=== PATIENT | female | born 1995 | race Caucasian/White ===

== ENCOUNTER 2017-09-21 02:01 | Emergency (ER) | payer OTHER ==
[2017-09-21] MEDS ORDERED: ONDANSETRON 4 MG/2 ML VIAL ONE (02:06)
--- NOTE | 2017-09-21 02:06 | EDPHY ---
H & P Time Seen by Provider: 09/21/17 02:06 HPI/ROS: HPI CHIEF COMPLAINT: Nausea HISTORY OF PRESENT ILLNESS: Patient very pleasant 21-year-old female she is otherwise healthy without any significant medical history she presents emergency room with nausea. She states for the past week she has had intermittent nausea and did see her primary care doctor for this and was thought to be anxiety. She states that most today she laid in bed she has not had any vomiting she denies any fever. About an hour ago or 1:00 a.m. Prior to arriving in the emergency room she developed a little bit of right flank pain that is now resolved. The pain did not go anywhere was located in right CVA region. She denies any urinary symptoms, denies any abdominal pain, denies chest pain or shortness of breath, denies fever. Denies diarrhea or active vomiting. Denies rigors or chills. She called the nurse hotline due to nausea and was referred to the emergency room for evaluation. Really her only complaint upon arrival to the emergency room is nausea. Denies vomiting denies chest pain or shortness of breath. Patient denies any abdominal pain. Past Medical History: Denies medical history Past Surgical History: Denies surgical history Social History: Denies daily use drugs alcohol tobacco. Family History: Noncontributory ROS REVIEW OF SYSTEMS: A comprehensive 10 point review of systems is otherwise negative aside from elements mentioned in the history of present illness. Exam Constitutional appears well nontoxic no acute distress, triage nursing summary reviewed, vital signs reviewed, awake/alert. Eyes normal conjunctivae and sclera, EOMI, PERRLA. HENT normal inspection, atraumatic, moist mucus membranes, no epistaxis, neck supple/ no meningismus, no raccoon eyes. Respiratory clear to auscultation bilaterally, normal breath sounds, no respiratory distress, no wheezing. Cardiovascular rate normal, regular rhythm, no murmur, no edema, distal pulses normal. Gastrointestinal soft, non-tender, no rebound, no guarding, normal bowel sounds, no distension, no pulsatile mass. Genitourinary no significant CVA tenderness on exam. Musculoskeletal no midline vertebral tenderness, full range of motion, no calf swelling, no tenderness of extremities, no meningismus, good pulses, neurovascularly intact. Skin pink, warm, & dry, no rash, skin atraumatic. Neurologic awake, alert and oriented x 3, AAOx3, moves all 4 extremities equally, motor intact, sensory intact, CN II-XII intact, normal cerebellar, normal vision, normal speech. Psychiatric normal mood/affect. Heme/Lymph/Immune no lymphadenopathy. Differential diagnosis includes but is not limited to and in no particular order : Bowel obstruction, appendicitis, gallbladder disease, diverticulitis, colitis , enteritis, perforated viscus, gastritis, GERD, esophagitis, urinary tract infection, pyelonephritis, kidney stones Medical Decision Making: Plan for this patient full workup for nausea and some mild right flank pain now resolved check urinalysis, check test, check basic blood work, IV fluids 1 L normal saline, IV Phenergan for nausea and re-evaluate Re-evaluation: 0314: Patient re-evaluated after GI cocktail and IV Pepcid and is feeling much improved. She has no abdominal pain or nausea is clear resolved after GI cocktail and Pepcid. I will place her on ranitidine acute day for 14 days. I do recommend she follows up with primary care doctor. Most likely cause of nausea could be esophagitis gastritis or ulcer Recommend she refrain from drinking spicy fatty greasy foods recommend no coffee and no alcohol. Zantac as prescribed bland diet. Additionally understands return emergency room if there is worsening abdominal pain fever vomiting Will additionally give GI follow-up. Of note urine was noted to be bloody. No active signs of infection. She is on her menstrual cycle currently. Source: Patient Constitutional: Initial Vital Signs Temperature (C) 36.6 C 09/21/17 02:04 Heart Rate 69 09/21/17 02:04 Respiratory Rate 18 09/21/17 02:04 Blood Pressure 102/75 09/21/17 02:04 O2 Sat (%) 98 09/21/17 02:04 O2 Delivery Mode Room Air Allergies/Adverse Reactions: No Known Allergies Allergy (Unverified 09/21/17 02:06) Home Medications: Medication Instructions Recorded Promethazine HCl 25 mg PO Q6-8PRN PRN #10 tablet 09/21/17 Ranitidine HCl 150 mg PO DAILY #14 tablet 09/21/17 Medical Decision Making - Data Points Laboratory Results: Laboratory Results 09/21/17 02:14 09/21/17 02:14 09/21/17 09/21/17 09/21/17 02:14 02:14 02:14 WBC RBC Hgb Hct MCV MCH MCHC RDW Plt Count MPV Neut % (Auto) Lymph % (Auto) Dawes % (Auto) Eos % (Auto) Baso % (Auto) Nucleat RBC Rel Count Absolute Neuts (auto) Absolute Lymphs (auto) Absolute Monos (auto) Absolute Eos (auto) Absolute Basos (auto) Absolute Nucleated RBC Immature Gran % Immature Gran # Sodium 142 mEq/L mEq/L (135-145) Potassium 3.9 mEq/L mEq/L (3.3-5.0) Chloride 108 mEq/L mEq/L (97-110) Carbon Dioxide 20 mEq/l L mEq/l (22-31) Anion Gap 14 mEq/L mEq/L (8-16) BUN 15 mg/dL mg/dL (7-23) Creatinine 0.7 mg/dL mg/dL (0.6-1.0) Estimated GFR > 60 Glucose 106 mg/dL H mg/dL (70-100) Calcium 9.5 mg/dL mg/dL (8.5-10.4) Lipase 136 IU/L IU/L (23-300) Beta HCG, Qual NEGATIVE Urine Color YELLOW Urine Appearance CLEAR Urine pH 5.0 (5.0-7.5) Ur Specific Palmer 1.019 (1.002-1.030) Urine Protein NEGATIVE (NEGATIVE) Urine Ketones TRACE H (NEGATIVE) Urine Blood 3+ H (NEGATIVE) Urine Nitrate NEGATIVE (NEGATIVE) Urine Bilirubin NEGATIVE (NEGATIVE) Urine Urobilinogen NEGATIVE EU EU (0.2-1.0) Ur Leukocyte Esterase NEGATIVE (NEGATIVE) Urine RBC 50-182 /hpf H /hpf (0-3) Urine WBC 0-1 /hpf /hpf (0-3) Ur Epithelial Cells TRACE /lpf /lpf (NONE-1+) Urine Glucose NEGATIVE (NEGATIVE) 09/21/17 02:14 WBC 9.03 10^3/uL 10^3/uL (3.80-9.50) RBC 4.72 10^6/uL 10^6/uL (4.18-5.33) Hgb 13.5 g/dL g/dL (12.6-16.3) Hct 40.9 % % (38.0-47.0) MCV 86.7 fL fL (81.5-99.8) MCH 28.6 pg pg (27.9-34.1) MCHC 33.0 g/dL g/dL (32.4-36.7) RDW 13.2 % % (11.5-15.2) Plt Count 280 10^3/uL 10^3/uL (150-400) MPV 10.8 fL fL (8.7-11.7) Neut % (Auto) 67.6 % % (39.3-74.2) Lymph % (Auto) 20.6 % % (15.0-45.0) Dawes % (Auto) 8.1 % % (4.5-13.0) Eos % (Auto) 2.8 % % (0.6-7.6) Baso % (Auto) 0.7 % % (0.3-1.7) Nucleat RBC Rel Count 0.0 % % (0.0-0.2) Absolute Neuts (auto) 6.11 10^3/uL 10^3/uL (1.70-6.50) Absolute Lymphs (auto) 1.86 10^3/uL 10^3/uL (1.00-3.00) Absolute Monos (auto) 0.73 10^3/uL 10^3/uL (0.30-0.80) Absolute Eos (auto) 0.25 10^3/uL 10^3/uL (0.03-0.40) Absolute Basos (auto) 0.06 10^3/uL 10^3/uL (0.02-0.10) Absolute Nucleated RBC 0.00 10^3/uL 10^3/uL (0-0.01) Immature Gran % 0.2 % % (0.0-1.1) Immature Gran # 0.02 10^3/uL 10^3/uL (0.00-0.10) Sodium Potassium Chloride Carbon Dioxide Anion Gap BUN Creatinine Estimated GFR Glucose Calcium Lipase Beta HCG, Qual Urine Color Urine Appearance Urine pH Ur Specific Palmer Urine Protein Urine Ketones Urine Blood Urine Nitrate Urine Bilirubin Urine Urobilinogen Ur Leukocyte Esterase Urine RBC Urine WBC Ur Epithelial Cells Urine Glucose Medications Given: Discontinued Medications Al Hydroxide/Mg Hydroxide (Maalox Susp) 30 ml PO ONCE ONE Stop: 09/21/17 02:48 Last Admin: 09/21/17 02:55 Dose: 30 ml Famotidine (Pepcid) 20 mg IVP EDNOW ONE Stop: 09/21/17 02:49 Last Admin: 09/21/17 02:55 Dose: 20 mg Hyoscyamine Sulfate (Levsin, Hyomax-Sl) 0.25 mg PO ONCE ONE Stop: 09/21/17 02:48 Last Admin: 09/21/17 02:54 Dose: 0.25 mg Sodium Chloride (Ns) 1,000 mls @ 0 mls/hr IV EDNOW ONE; Wide Open PRN Reason: Protocol Stop: 09/21/17 02:12 Last Admin: 09/21/17 02:18 Dose: 1,000 mls Lidocaine (Lidocaine 2% Viscous) 15 ml PO ONCE ONE Stop: 09/21/17 02:48 Last Admin: 09/21/17 02:56 Dose: 15 ml Promethazine HCl (Phenergan) 6.25 mg IVP ONCE ONE Stop: 09/21/17 02:13 Last Admin: 09/21/17 02:17 Dose: 6.25 mg Departure - Departure Disposition: Home, Routine, Self-Care Clinical Impression: Nausea Condition: Good Instructions: Acute Nausea and Vomiting (ED) Additional Instructions: 1. Stay well-hydrated drink lots of fluids. 2. Refrain from alcohol use. No spicy fatty greasy foods. 3. Return emergency room if develops worsening abdominal pain fever vomiting. Referrals: SONIDO GUERRERO MD [Primary Care Provider] - As per Instructions Raven Perry MD [Medical Doctor] - As per Instructions Prescriptions: Promethazine HCl 25 mg PO Q6-8PRN PRN #10 tablet PRN Reason: Nausea/Vomiting, Use 1st Ranitidine HCl 150 mg PO DAILY #14 tablet
[2017-09-21] MEDS ORDERED: NS 1,000 ML IV ONE (02:11)
[2017-09-21] MEDS ORDERED: PROMETHAZINE HCL 25 MG/ML INJ IVP ONE (02:12)
[2017-09-21 02:33] LABS: PLATELET COUNT 280 10^3/uL (150-400)
[2017-09-21] MEDS ORDERED: HYOSCYAMINE SULFATE 0.125 MG TAB PO ONE (02:47)
[2017-09-21] MEDS ORDERED: LIDOCAINE 2% VISCOUS 15 ML UDCUP PO ONE (02:47)
[2017-09-21] MEDS ORDERED: MAG HYDROX/AL HYDROX/SIMETH 30 ML UDCUP PO ONE (02:47)
[2017-09-21] MEDS ORDERED: FAMOTIDINE 20 MG/2 ML SDV IVP ONE (02:48)
[2017-09-21 03:18] VITALS: BP 120/76
== END 2017-09-21 03:32 | disposition home or self-care (01) ==
DX: R11.0 Nausea (principal); E86.9 Volume depletion, unspecified
CPT/HCPCS: 96374; J2405; J2550

== ENCOUNTER 2017-09-27 01:36 | Emergency (ER) | payer OTHER ==
[2017-09-27] MEDS ORDERED: diphenhydrAMINE 25 MG CAP PO ONE ×2 (01:55→02:02)
--- NOTE | 2017-09-27 01:58 | EDPHY ---
H & P Stated Complaint: shakey for 1 week Time Seen by Provider: 09/27/17 01:42 HPI/ROS: Chief Complaint: Shaky, feeling unwell HPI: 22-year-old woman has been having nausea for the past several weeks. She was seen here on the 18 of September for nausea. Workup at that time was unremarkable. She was prescribed promethazine and omeprazole. Patient states that since taking the promethazine she has been having episodes where she feels very shaky and antsy. The symptoms last for a few hours after she takes the promethazine. She is feeling better now. Some nausea. She does state that she was recently seen at [facility] in [place] and referred to neurologist is at think her nausea might be secondary to a concussion. Patient states she fell while snowboarding in spring, which is when her chronic nausea began. Denies any fevers or chills. No weight loss or weight gain. No excess thirst or urination. ROS: 10 point Review of Systems is negative except as noted in the HPI. Social History: No smoking, no alcohol, no recreational drug use Family History: non-contributory Physical Exam: Gen: Awake, Alert, No Distress HEENT: Nose: no rhinorrhea Eyes: PERRLA, EOMI Mouth: Moist mucosa Neck: Supple, no JVD Chest: nontender, lungs clear to auscultation Heart: S1, S2 normal, no murmur Abd: Soft, non-tender, no guarding Back: no CVA tenderness, no midline tenderness Ext: no edema, non-tender Skin: no rash Neuro: CN II-XII intact, Sensation grossly intact, Strength 5/5 in bilateral upper and lower extremities - Personal History LMP (Females 10-55): 1-7 Days Ago Current Tetanus Diphtheria and Acellular Pertussis (TDAP): Yes - Medical/Surgical History Hx Asthma: No Hx Chronic Respiratory Disease: No Hx Diabetes: No Hx Cardiac Disease: No Hx Renal Disease: No Hx Cirrhosis: No Hx Alcoholism: No Hx HIV/AIDS: No Hx Splenectomy or Spleen Trauma: No Other PMH: nausea - Social History Smoking Status: Never smoked Constitutional: Initial Vital Signs Temperature (C) 36.5 C 09/27/17 01:39 Heart Rate 72 09/27/17 01:39 Respiratory Rate 18 09/27/17 01:39 Blood Pressure 98/66 L 09/27/17 01:39 O2 Sat (%) 99 09/27/17 01:39 Allergies/Adverse Reactions: No Known Allergies Allergy (Unverified 09/21/17 02:06) Home Medications: Medication Instructions Recorded Promethazine HCl 25 mg PO Q6-8PRN PRN #10 tablet 09/21/17 Ranitidine HCl 150 mg PO DAILY #14 tablet 09/21/17 Zofran 09/27/17 Medical Decision Making ED Course/Re-evaluation: 22-year-old woman presenting with what sounds like extrapyramidal side effects from the promethazine that she has been taking. She had normal laboratory evaluations and she is here before. She is already scheduled to see a neurologist for her nausea. Plan will be to give her some oral Benadryl here. She is otherwise very well appearing. Is not experiencing significant affects at this time. I have advised her to discontinue the promethazine. She can continue to take the Zofran as needed. Departure - Departure Disposition: Home, Routine, Self-Care Clinical Impression: Adverse drug reaction Condition: Good Instructions: Adverse Drug Reaction (ED) Additional Instructions: Please discontinue using the promethazine for nausea. You may continue to take the Zofran. Follow up with primary care physician in 3-4 days for further evaluation. Referrals: SONIDO GUERRERO MD [Primary Care Provider] - As per Instructions
[2017-09-27 02:42] VITALS: BP 101/69
== END 2017-09-27 02:42 | disposition home or self-care (01) ==
DX: R25.1 Tremor, unspecified (principal); T42.6X5A Adverse effect of other antiepileptic and sedative-hypnotic drugs, initial encounter